=== PATIENT | female | born 1965 | race Two or more races ===

== ENCOUNTER 2025-03-11 16:12 | Inpatient (IN) | payer OTHER, MEDICAID ==
[~2025-03-11] VITALS: Ht 167.6 cm; Wt 65.0 kg
[~2025-03-11 16:12] MED LIST: ALPR0.25 PO; AMBIEN PO; ESTR1TAB6 PO; MET50T PO; NITR400A5 TL
[2025-03-11 16:33] VITALS: PULSE 78; RESP 20; O2SAT 96
--- NOTE | 2025-03-11 17:12 | DVH ---
CHEST RADIOGRAPH Indication: sob Technique: Single frontal view of the chest was obtained COMPARISON: None FINDINGS: Lines and Tubes: None Lungs: Clear Pleura: No effusion. No pneumothorax. Cardiomediastinal contours: Unremarkable Bones: Unremarkable IMPRESSION: 1. No acute disease.
[2025-03-11] MEDS: ONDANSETRON HCL 4 MG/2 ML VIAL IV ONE (17:18)
--- NOTE | 2025-03-11 17:26 | ED.PDOC ---
SOB-HPI HPI Comments 59 y.o female with PMHx of HTN, HLD, GERD, asthma, and hypokalemia, presents to the ED via EMS for a one week history of SOB associated with a productive cough and green phlegm output, associated with nausea. Patient tested positive for COVID-19 on March 07, 2025, and initially experienced intermittent fevers, though she is now afebrile. EMS administered a breathing treatment en route, which provided mild relief, and she presented with an oxygen saturation of 96% on room air post-treatment. Additionally, the patient reported passing a "clump of meat" (possibly cellular matter) while urinating yesterday and today. She denies any dysuria, hematuria, chest pain, chills, or vomiting. Chief Complaint: Cough Time Seen by MD: 16:49 Primary Care Provider: FRANCY Morfin notes: Nurses Notes, Oral Therapist Notes, Medications, Allergies Information Source: Patient Mode of Arrival: EMS Severity: Moderate Timing: Weeks (1) Duration: Since onset Context: At Rest PE Risk Factors: None History of: Recent URI, Other Modifying Factors: Nothing Associated Signs and Symptoms: Cough If cough with SOB: Productive, Green Past Medical History PAST MEDICAL HISTORY: Anxiety, GERD, High Lipids, HTN Surgical History: Cholecystectomy, , Hysterectomy CHILD NUTRITION MANAGER History: No Pertinent CHILD NUTRITION MANAGER History Family History Family History: Reviewed,noncontributory to illness, No family hx of Heart [place] Social History Smoker: Non-Smoker Alcohol: Rarely Drugs: Denies Drug Use Lives In: Home Constitutional: denies: chills, diaphoresis, fatigue, fever, malaise, sweats, weakness, others EENTM: denies: blurred vision, double vision, ear bleeding, ear discharge, ear drainage, ear pain, ear ringing, eye pain, eye redness, hearing loss, mouth pain, mouth swelling, nasal discharge, nose bleeding, nose congestion, nose pain, photophobia, tearing, throat pain, throat swelling, voice changes, others Respiratory: reports: cough, SOB at rest, shortness of breath, SOB with excertion; denies: hemoptysis, orthopnea, stridor, wheezing, others Cardiovascular: denies: chest pain, dizzy spells, diaphoresis, Dyspnea on exertion, edema, irregular heart beat, left arm pain, lightheadedness, palpitations, PND, syncope, others Gastrointestinal: denies: abdomen distended, abdominal pain, blood streaked bowels, constipated, diarrhea, dysphagia, difficulty swallowing, hematemesis, melena, nausea, poor appetite, poor fluid intake, rectal bleeding, rectal pain, vomiting, others Genitourinary: denies: abnormal vagina bleeding, burning, dyspareunia, dysuria, flank pain, frequency, hematuria, incontinence, pain, , vagina discharge, urgency, others Neurological: denies: dizziness, fainting, headache, left sided numbness, left sided weakness, numbness, paresthesia, pre-existing deficit, right sided numbness, right sided weakness, seizure, speech problems, tingling, tremors, weakness, others Musculoskeletal: denies: back pain, gout, joint pain, joint swelling, muscle pain, muscle stiffness, neck pain, others Integumetry: denies: bruises, change in color, change in hair/nails, dryness, laceration, lesions, lumps, rash, wounds, others Allergic/Immunocompromised: denies: Difficulty Healing, Frequent Infections, Hives, Itching, others Hematologic/Lymphatic: denies: anemia, blood clots, easy bleeding, easy bruising, swollen glands, others Endocrine: denies: excessive hunger, excessive sweating, excessive thirst, excessive urination, flushing, intolerance to cold, intolerance to heat, unexplained weight gain, unexplained weight loss, others Psychiatric: denies: anxiety, bipolar disorder, depression, hopeless, panic disorder, schizophrenia, sleepless, suicidal, others All Other Systems: Reviewed and Negative Physical Exam General Appearance: Mild Distress HEENT: Other (Pupils and face symmetric. Moist mucous membranes.) Neck: Full Range of Motion, Normal Inspection Respiratory: Decreased Breath Sounds, No Accessory Muscle Use, Respiratory Distress (Mild respiratory distress) Cardiovascular: No Edema, No JVD, Regular Rate/Rhythm Breast Exam: Deferred Gastrointestinal: Non Tender, Soft Genitalia: Deferred Pelvic: Deferred Rectal: Deferred Extremities: Normal inspection, Normal range of motion, Non-tender, No pedal edema Neurologic: Alert (Oriented x4), Normal Affect, Normal Mood, Other (No gross focal deficit) Cerebellar Function: NOT DONE Reflexes: NOT DONE Skin: Dry, Normal Color, Warm Lymphatic: NOT DONE Was a procedure done? Was a procedure done?: No Differential Dx Differential Diagnosis: Bronchitis, CHF, COPD, Hyperventilation, Pneumonia, Respiratory Distress, URI, Other (UTI, sepsis, among others) X-Ray, Labs, Meds, VS Vital Signs Date Time Temp Pulse Resp B/P (MAP) Pulse Ox O2 Delivery O2 Flow Rate FiO2 03/11/25 20:00 74 16 134/93 (107) 97 03/11/25 19:44 99.0 99.0 03/11/25 18:00 77 18 130/93 (105) 97 03/11/25 16:33 78 20 96 Room Air* 0 21 03/11/25 16:33 98.5 86 14 163/103 (123) 92 98.5 03/11/25 16:16 98.5 78 20 168/97 96 98.5 Lab Test 03/11/25 20:49 03/11/25 19:01 03/11/25 18:32 03/11/25 18:20 Range/Units Troponin I High Sensitivity < 3 L < 3 L </=34 ng/L Lactic Acid Level 2.3 *H 0.4-2.0 mmol/L Urine Color Colorless Yellow Urine Clarity Turbid H Clear Urine pH 7.0 5.0-9.0 Urine Specific [place] 1.013 1.001-1.035 Urine Protein Negative Negative Urine Ketones Negative Negative Urine Blood 1+ H Negative /uL Urine Nitrite Negative Negative Urine Bilirubin Negative Negative Urine Urobilinogen Normal Negative mg/dL Urine Leukocyte Esterase 3+ Negative /uL Urine RBC 14 0 - 4 /hpf Urine WBC Clumps Present None Seen /hpf Urine Microscopic WBC 242 H 0-5 /HPF Urine Squamous Epithelial Cells Few <5 /hpf Urine Bacteria None seen None Seen /hpf Urine Hyaline Casts Few 0 - 2 /lpf Urine Glucose Normal Normal mg/dL Test 03/11/25 18:00 03/11/25 17:11 03/11/25 17:00 Range/Units Influenza Type A Antigen Negative Negative Influenza Type B Antigen Negative Negative SARS-CoV-2 Antigen (Rapid) Positive NEGATIVE White Blood Count 13.0 H 4.4-10.8 10^3/uL Red Blood Count 4.37 4.0-5.20 10^6/uL Hemoglobin 10.7 L 12.2-16.2 g/dL Hematocrit 33.0 L 36.0-46.0 % Mean Corpuscular Volume 75.5 L 80.0-100.0 fL Mean Corpuscular Hemoglobin 24.6 L 28.0-32.0 pg Mean Corpuscular Hemoglobin Concent 32.5 32.0-36.0 g/dL Red Cell Distribution Width 20.9 H 11.8-14.3 % Platelet Count 438 140-450 10^3/uL Mean Platelet Volume 7.7 6.9-10.8 fL Neutrophils (%) (Auto) 84.0 H 37.0-80.0 % Lymphocytes (%) (Auto) 13.3 10.0-50.0 % Monocytes (%) (Auto) 2.6 0.0-12.0 % Eosinophils (%) (Auto) 0.0 0.0-7.0 % Basophils (%) (Auto) 0.1 0.0-2.0 % Neutrophils # (Auto) 10.9 H 1.6-8.6 10 ^3/uL Lymphocytes # (Auto) 1.7 0.4-5.4 10 ^3/uL Monocytes # (Auto) 0.3 0-1.3 10 ^3/uL Eosinophils # (Auto) 0 0-0.8 10 ^3/uL Basophils # (Auto) 0 0-0.2 10 ^3/uL Nucleated Red Blood Cells 0.1 % Sodium Level 144 136-145 mmol/L Potassium Level 3.1 L 3.5-5.1 mmol/L Chloride Level 106 98-107 mmol/L Carbon Dioxide Level 29 20-31 mmol/L Anion Gap 9 5-15 Blood Urea Nitrogen 15 9-23 mg/dL Creatinine 0.75 0.550-1.02 mg/dL Glomerular Filtration Rate Calc 91 >90 mL/min BUN/Creatinine Ratio 20.0 10.0-20.0 Serum Glucose 117 H 74-106 mg/dL Calcium Level 8.9 8.7-10.4 mg/dL Troponin I High Sensitivity < 3 L </=34 ng/L B-Type Natriuretic Peptide 48.14 0-100 pg/mL Lactic Acid Level 2.1 *H 0.4-2.0 mmol/L Current Medications Medications (Trade) Dose Ordered Sig/[place] Route Start Time Stop Time Status Last Admin Ondansetron HCl (Zofran) 4 mg ONCE ONCE IV 03/11/25 17:00 03/11/25 17:03 DC 8/22/25 17:18 Dexamethasone Sodium Phosphate (Decadron Injection) 10 mg ONCE ONCE IV 03/11/25 17:00 03/11/25 17:03 DC 03/11/25 17:18 Cefepime HCl 50 ml @ 12.5 mls/hr ONCE ONCE IV 03/11/25 20:15 03/12/25 00:14 03/11/25 21:14 Sodium Chloride 1,000 ml @ 1,000 mls/hr Q1H ONCE IV 03/11/25 20:15 03/11/25 21:14 DC 03/11/25 21:14 Potassium Bicarbonate (Klor-Con/Ef) 50 meq ONCE ONCE PO 03/11/25 20:15 03/11/25 20:57 DC 03/11/25 21:14 PROCEDURE(s): CXRP - CHEST PORTABLE REASON: sob ORDER NUMBER(s): [id number], ACCESSION NUMBER(s): [id number] CHEST RADIOGRAPH Indication: sob Technique: Single frontal view of the chest was obtained COMPARISON: None FINDINGS: Lines and Tubes: None Lungs: Clear Pleura: No effusion. No pneumothorax. Cardiomediastinal contours: Unremarkable Bones: Unremarkable IMPRESSION: 1. No acute disease. X-Ray, Labs, Meds, VS Comment 59 y.o female with PMHx of HTN, HLD, GERD, asthma, and hypokalemia, presents to the ED via EMS for a one week history of SOB associated with a productive cough and green phlegm output, associated with nausea, with known COVID infection Vitals remarkable for BP 168/97 Exam remarkable for mild respiratory distress and tachypnea Rhythm Strip independently interpreted by me: Sinus rhythm, rate 78, no ectopy. Chest x-ray IMPRESSION: 1. No acute disease. CBC remarkable for WBC 13, metabolic panel remarkable for potassium 3.1, lactate 2.3, BNP and 2 serial troponins negative, COVID positive, influenza negative, UA abnormal consistent with UTI Patient treated with the following in the ED: 1 L 0.9 normal saline IV bolus, cefepime 2 g IV, Zofran 4 mg IV, effervescent potassium 50 mEq p.o. On re-evaluation, vitals are stable and patient is not in respiratory distress. Plan is to admit the patient for respiratory support as needed, pulmonary consultation, IV antibiotics for treatment of UTI Time of 1ST Reevaluation: 18:00 Reevaluation 1ST: Unchanged Patient Education/Counseling: Diagnosis, Treatment, Prognosis Family Education/Counseling: No Family Present SEPSIS Sepsis Screen Date sepsis recognized/suspect: Mar 11, 2025 Time Sepsis recognized/suspect: 1620 Recent Procedure: No On Antibiotic Therapy: No Respiratory Rate >20: No Heart Rate >90: No Temp<36 C (96.8 F) or >38.3 C: No SBP <90 or MAP <65 mmHG: No New Acute Mental Status Change: No Is the patient on CPAP, BIPAP,: No Physician Orders Chest Portable (03/11/25 16:17) Electrocardigram (03/11/25 16:17) Blood Culture (03/11/25 16:17) Cefepime 2gm/50ml Ns (Maxipime 2gm/50ml) (03/11/25 20:15) Urine Bacterial Culture (03/11/25 21:57) Ceftriaxone 1gm/50ml D5w (Rocephin) (03/12/25 09:00) Ceftriaxone 1gm/50ml D5w (Rocephin) (03/11/25 22:00) Isolation Order (03/11/25 21:57) Precautions (Contact,Droplets, (03/11/25 21:57) Lactic Acid W/ Reflex Order (03/11/25 21:57) C-Reactive Protein (03/11/25 21:57) D-Dimer (03/11/25 21:57) Lactate Dehydrogenase (03/11/25 21:57) Chest Two Views Routine (03/11/25 21:57) Vital Signs Date Time Temp Pulse Resp B/P (MAP) Pulse Ox O2 Delivery O2 Flow Rate FiO2 03/11/25 20:00 74 16 134/93 (107) 97 03/11/25 19:44 99.0 99.0 03/11/25 18:00 77 18 130/93 (105) 97 03/11/25 16:33 78 20 96 Room Air* 0 21 03/11/25 16:33 98.5 86 14 163/103 (123) 92 98.5 03/11/25 16:16 98.5 78 20 168/97 96 98.5 Laboratory Tests Test 03/11/25 17:00 03/11/25 17:11 03/11/25 19:01 Lactic Acid Level 2.1 mmol/L (0.4-2.0) *H 2.3 mmol/L (0.4-2.0) *H White Blood Count 13.0 10^3/uL (4.4-10.8) H Medications Medications Dose Ordered Sig/[place] Route Start Time Stop Time Status Last Admin Dose Admin Cefepime HCl 50 ml @ 12.5 mls/hr ONCE ONCE IV 03/11/25 20:15 03/12/25 00:14 03/11/25 21:14 Dexamethasone Sodium Phosphate 10 mg ONCE ONCE IV 03/11/25 17:00 03/11/25 17:03 DC 03/11/25 17:18 Ondansetron HCl 4 mg ONCE ONCE IV 03/11/25 17:00 03/11/25 17:03 DC 03/11/25 17:18 Potassium Bicarbonate 50 meq ONCE ONCE PO 03/11/25 20:15 03/11/25 20:57 DC 03/11/25 21:14 Sodium Chloride 1,000 ml @ 1,000 mls/hr Q1H ONCE IV 03/11/25 20:15 03/11/25 21:14 DC 03/11/25 21:14 Reassessment Post Fluid SEPSIS FOCUS EXAM(REASSESSMENT Sepsis reassessment focused exam completed. Date: 03/11/25 Time 22:13 30 cc/kilogram IV fluid bolus not administered due to patient's COVID positive status. Aggressive fluid hydration could cause harm. Departure 1 Departure Time of Disposition: 20:00 Impression: Primary Impression: COVID Additional Impressions: Shortness of breath UTI (urinary tract infection) Sepsis Disposition: ADMITTED INPATIENT Admit to: Tele Condition: Guarded Critical Care Note Critical Care Time?: Yes (35 min-critical care time only) Critical care comment: Critical care time including multiple bedside re-evaluations, review of lab and imaging studies, and discussion of the case with the admitting provider. Patient is high risk for respiratory, metabolic and/or hemodynamic de compensation. Stability Stability form required: No Heart Score Heart Score: Heart Score Response (Comments) Value History N/A 0 EKG N/A 0 Age N/A 0 Risk Factors N/A 0 Troponin N/A 0 Total 0 I personally scribed for PETER EVANS MD ([email or web address]) on 03/11/25 at 17:26. Electronically submitted by Kristen Eugene ([facility]). PETER EVANS MD Mar 11, 2025 17:26
[2025-03-11 17:31] LABS: Hematocrit 33.0 % (36.0-46.0); Hemoglobin 10.7 g/dL (12.2-16.2); Mean Corpuscular Hemoglobin 24.6 pg (28.0-32.0); Mean Corpuscular Volume 75.5 fL (80.0-100.0); Nucleated Red Blood Cells % 0.1 %
[2025-03-11 17:37] LABS: Calcium 8.9 mg/dL (8.7-10.4); Chloride 106 mmol/L (98-107); Sodium 144 mmol/L (136-145)
[2025-03-11 17:38] LABS: Anion Gap 9 (5-15); Carbon Dioxide 29 mmol/L (20-31)
[2025-03-11 17:43] LABS: BUN/Creatinine Ratio 20.0 (10.0-20.0); Blood Urea Nitrogen 15 mg/dL (9-23)
[2025-03-11 17:50] LABS: Glucose 117 mg/dL (74-106); Potassium 3.1 mmol/L (3.5-5.1)
[2025-03-11 17:58] LABS: Lactic Acid w/Reflex 2.1 mmol/L (0.4-2.0)
[2025-03-11 18:38] LABS: COVID19 ANTIGEN SOFIA FIA POSITIVE (NEGATIVE)
[2025-03-11 18:53] LABS: Urine Protein, UAD Negative (Negative); Urine WBC Clumps PRESENT /hpf (None Seen)
[2025-03-11] MEDS: POTASSIUM EFFERVESENT TAB 25 MEQ PO ONE (21:14)
[2025-03-11] MEDS: CEFEPIME 2GM/50ML NS 50 ML IV ONE (21:14)
[2025-03-11] MEDS: SODIUM CHLORIDE 0.9% 1,000 ML IV ONE (21:14)
[2025-03-11] MEDS ORDERED: ONDANSETRON HCL 4 MG/2 ML VIAL IV PRN (22:15)
--- NOTE | 2025-03-11 22:46 | DVH ---
CHEST RADIOGRAPH Indication: suspected Covid -19 pneumonia Technique: Frontal and lateral view of the chest was obtained Comparison: XY CHEST PORTABLE on DOS: 03/11/25 FINDINGS: Lines and Tubes: External leads. Lungs: No focal consolidation. Pleura: No effusion or pneumothorax. Cardiomediastinal contours: Unremarkable Bones: Unremarkable IMPRESSION: 1. No evidence of acute disease or change from prior exam.
[2025-03-11 22:53] LABS: Lactic Acid w/Reflex 3.1 mmol/L (0.4-2.0)
--- NOTE | 2025-03-11 23:08 | DVHHP2 ---
History of Present Illness Reason for Visit: Acute respiratory distress History of Present Illness The patient is a 59-year-old female with past medical history of asthma, anxiety, GERD, hyperlipidemia, and hypertension who presented to [facility] ED with complaint of shortness of breaths. Patient reports she has been experiencing shortness of breaths associated with cough with greenish phlegm, nausea, tested positive for COVID-19 on March 07, 2025 with intermittent fevers, but now afebrile. Patient was seen and evaluated in the ED, laboratory data shows WBC 13.0, hemoglobin 10.7, hematocrit 33.0, platelets 438, sodium 144, potassium 3.1, BUN 15, creatinine 0.75, GFR 91, glucose 117, calcium 8.9, troponin < 3, lactic acid 2.3, serology reports positive for COVID-19, urinalysis positive for urinary tract infection. Blood pressure 134/93, heart rate 74, temperature 99.0 F, O2 saturation 97% on oxygen. Chest x-ray showed no evidence of acute disease. Please see medication orders section in the computer. On my assessment, patient denied chest pain, no headache, no dizziness, no diaphoresis, currently on oxygen, no nausea, no vomiting, no fever, no chills. Patient was admitted for further evaluation and medical management. Past Medical History Asthma, Anxiety, GERD, High Lipids, HTN Past Surgical History Cholecystectomy, , Hysterectomy Family History Reviewed, noncontributory to the management of this case. Past Social History The patient lives at home, denies smoking, alcohol or illicit drugs abuse. Review of Systems Constitutional: No: Fever, Chills, Sweats, Weakness, Malaise, Other Eyes: No: Pain, Vision change, Conjunctivae inflammation, Eyelid inflammation, Other, Redness ENT: No: Ear pain, Ear discharge, Nose pain, Nose discharge, Nose congestion, Mouth pain, Mouth swelling, Throat pain, Throat swelling, Other Respiratory: Cough, Shortness of breath, SOB with excertion, Other (SOB at rest); No: Dry, Wheezing, Hemoptysis, Pleuritic Pain, Sputum, Wheezing Cardiovascular: No: Chest Pain, Palpitations, Orthopnea, Paroxysmal Noc. Dyspnea, Edema, Lt Headedness, Other Gastrointestinal: No: Nausea, Vomiting, Abdominal Pain, Diarrhea, Constipation, Melena, Hematochezia, Other Genitourinary: No Dysuria, No Frequency, No Incontinence, No Hematuria, No Retention, No Other Musculoskeletal: No: other, neck pain, shoulder pain, arm pain, back pain, hand pain, leg pain, foot pain Skin: No: Rash, Lesions, Jaundice, Bruising, Other Neurological: No: Weakness, Numbness, Incoordination, Change in speech, Confusion, Seizures, Other Allergies: Coded Allergies: Morphine (Verified Adverse Reaction, Unknown, HEADACHE, 01/09/16) Medications Current Medications Medications Dose Ordered Sig/[place] Route Start Time Stop Time Status Last Admin Dose Admin Ceftriaxone Sodium 50 ml @ 100 mls/hr DAILY@09 IV 03/12/25 09:00 UNV Zinc Sulfate 220 mg DAILY PO 03/12/25 10:00 Albuterol 90 mcg TIDPRN PRN IN 03/11/25 22:15 Budesonide 360 mcg BID IN 03/12/25 10:00 Dexamethasone Sodium Phosphate 6 mg DAILY IV 03/12/25 10:00 03/22/25 09:59 Enoxaparin Sodium 40 mg DAILY SC 03/12/25 10:00 Sodium Chloride 10 ml Q8HR IV 03/12/25 06:00 Ondansetron HCl 4 mg Q4HP PRN IV 03/11/25 22:15 Docusate Sodium 100 mg BIDPRN PRN PO 03/11/25 22:15 Ascorbic Acid 500 mg BID PO 03/12/25 10:00 Acetaminophen 650 mg Q6HP PRN PO 03/11/25 22:15 Exam Vital Signs Vital Signs Date Time Temp Pulse Resp B/P (MAP) Pulse Ox O2 Delivery O2 Flow Rate FiO2 03/11/25 20:00 74 16 134/93 (107) 97 03/11/25 19:44 99.0 99.0 03/11/25 16:33 Room Air* 0 21 General Appearance: Alert, Oriented X3, Cooperative, No acute distress HEENT: Atraumatic, PERRLA, EOMI, Mucous membr. moist/pink Respiratory: Normal air movement Cardiovascular: Regular rate, Normal S1, Normal S2, No murmurs Abdominal: Normal bowel sounds, Soft, No tenderness, No hepatospenomegaly, No masses Extremities: No clubbing, No cyanosis, No edema, Normal pulses, No tenderness/swelling Skin: No rashes, No breakdown, No significant lesion Neuro: Normal gait, Normal speech, Strength at 5/5 X4 ext, Normal tone, Sensation intact, Cranial nerves 3-12 NL, Reflexes 2+ Psych/Mental Status: Mental status NL, Mood NL Labs/Xrays Labs Test 03/11/25 22:20 03/11/25 20:49 03/11/25 18:20 03/11/25 18:00 Range/Units Lactic Acid Level 3.1 *H 0.4-2.0 mmol/L Lactate Dehydrogenase 157 120-246 U/L Troponin I High Sensitivity < 3 L </=34 ng/L Urine Color Colorless Yellow Urine Clarity Turbid H Clear Urine pH 7.0 5.0-9.0 Urine Specific [place] 1.013 1.001-1.035 Urine Protein Negative Negative Urine Ketones Negative Negative Urine Blood 1+ H Negative /uL Urine Nitrite Negative Negative Urine Bilirubin Negative Negative Urine Urobilinogen Normal Negative mg/dL Urine Leukocyte Esterase 3+ Negative /uL Urine RBC 14 0 - 4 /hpf Urine WBC Clumps Present None Seen /hpf Urine Microscopic WBC 242 H 0-5 /HPF Urine Squamous Epithelial Cells Few <5 /hpf Urine Bacteria None seen None Seen /hpf Urine Hyaline Casts Few 0 - 2 /lpf Urine Glucose Normal Normal mg/dL Influenza Type A Antigen Negative Negative Influenza Type B Antigen Negative Negative SARS-CoV-2 Antigen (Rapid) Positive NEGATIVE Test 03/11/25 17:11 Range/Units White Blood Count 13.0 H 4.4-10.8 10^3/uL Red Blood Count 4.37 4.0-5.20 10^6/uL Hemoglobin 10.7 L 12.2-16.2 g/dL Hematocrit 33.0 L 36.0-46.0 % Mean Corpuscular Volume 75.5 L 80.0-100.0 fL Mean Corpuscular Hemoglobin 24.6 L 28.0-32.0 pg Mean Corpuscular Hemoglobin Concent 32.5 32.0-36.0 g/dL Red Cell Distribution Width 20.9 H 11.8-14.3 % Platelet Count 438 140-450 10^3/uL Mean Platelet Volume 7.7 6.9-10.8 fL Neutrophils (%) (Auto) 84.0 H 37.0-80.0 % Lymphocytes (%) (Auto) 13.3 10.0-50.0 % Monocytes (%) (Auto) 2.6 0.0-12.0 % Eosinophils (%) (Auto) 0.0 0.0-7.0 % Basophils (%) (Auto) 0.1 0.0-2.0 % Neutrophils # (Auto) 10.9 H 1.6-8.6 10 ^3/uL Lymphocytes # (Auto) 1.7 0.4-5.4 10 ^3/uL Monocytes # (Auto) 0.3 0-1.3 10 ^3/uL Eosinophils # (Auto) 0 0-0.8 10 ^3/uL Basophils # (Auto) 0 0-0.2 10 ^3/uL Nucleated Red Blood Cells 0.1 % Sodium Level 144 136-145 mmol/L Potassium Level 3.1 L 3.5-5.1 mmol/L Chloride Level 106 98-107 mmol/L Carbon Dioxide Level 29 20-31 mmol/L Anion Gap 9 5-15 Blood Urea Nitrogen 15 9-23 mg/dL Creatinine 0.75 0.550-1.02 mg/dL Glomerular Filtration Rate Calc 91 >90 mL/min BUN/Creatinine Ratio 20.0 10.0-20.0 Serum Glucose 117 H 74-106 mg/dL Calcium Level 8.9 8.7-10.4 mg/dL B-Type Natriuretic Peptide 48.14 0-100 pg/mL PATIENT: ADRIANNE MCFADDEN ACCT: [id number] UNIT: [id number] : 1965 LOC: ER ROOM / BED: / AGE / SEX: 59 / F ADM STATUS: REG ER SERVICE 1617 ORDERING PHYSICIAN: PETER EVANS MD PROCEDURE(s): CXRP - CHEST PORTABLE REASON: sob ORDER NUMBER(s): [id number], ACCESSION NUMBER(s): [id number] CHEST RADIOGRAPH Indication: sob Technique: Single frontal view of the chest was obtained COMPARISON: None FINDINGS: Lines and Tubes: None Lungs: Clear Pleura: No effusion. No pneumothorax. Cardiomediastinal contours: Unremarkable Bones: Unremarkable IMPRESSION: 1. No acute disease. ORDERING PHYSICIAN: KEAGAN FERNANDEZ DNP PROCEDURE(s): CXR2 - CHEST TWO VIEWS ROUTINE REASON: suspected Covid -19 pneumonia ORDER NUMBER(s): [id number], ACCESSION NUMBER(s): [id number] CHEST RADIOGRAPH Indication: suspected Covid -19 pneumonia Technique: Frontal and lateral view of the chest was obtained Comparison: XY CHEST PORTABLE on DOS: 03/11/25 FINDINGS: Lines and Tubes: External leads. Lungs: No focal consolidation. Pleura: No effusion or pneumothorax. Cardiomediastinal contours: Unremarkable Bones: Unremarkable IMPRESSION: 1. No evidence of acute disease or change from prior exam. SEPSIS Sepsis Screen Date sepsis recognized/suspect: Mar 11, 2025 Time Sepsis recognized/suspect: 1632 Recent Procedure: No On Antibiotic Therapy: No Respiratory Rate >20: No Heart Rate >90: No Temp<36 C (96.8 F) or >38.3 C: No SBP <90 or MAP <65 mmHG: No New Acute Mental Status Change: No Is the patient on CPAP, BIPAP,: No Physician Orders Chest Portable (03/11/25 16:17) Electrocardigram (03/11/25 16:17) Blood Culture (03/11/25 16:17) Cefepime 2gm/50ml Ns (Maxipime 2gm/50ml) (03/11/25 20:15) Urine Bacterial Culture (03/11/25 21:57) Ceftriaxone 1gm/50ml D5w (Rocephin) (03/12/25 09:00) Isolation Order (03/11/25 21:57) Precautions (Contact,Droplets, (03/11/25 21:57) C-Reactive Protein (03/11/25 21:57) D-Dimer (03/11/25 21:57) Chest Two Views Routine (03/11/25 21:57) Zinc Sulfate (03/12/25 10:00) Albuterol Inhaler (Ventolin Hfa) (03/11/25 22:15) Urinalysis (03/11/25 22:04) C-Reactive Protein (03/15/25 22:04) Budesonide (Inhalation) (Pulmicort Flexh (03/12/25 10:00) Dexamethasone Injection (Decadron Inject (03/12/25 10:00) Enoxaparin Sodium (Lovenox) (03/12/25 10:00) Allergies (03/11/25 22:04) Code Status (03/11/25 22:04) Sodium Chloride Lock (Saline Lock Ns) (03/12/25 06:00) Docusate Sodium Capsule (Colace Capsule) (03/11/25 22:15) Ascorbic Acid Tablet (Vitamin C Tablet) (03/12/25 10:00) Complete Blood Count (03/12/25 04:00) Comprehensive Metabolic Panel (03/12/25 04:00) Cardiac Diet-2gna,Lofat,Lochol (03/12/25 Breakfast) Condition: Serious (03/11/25 22:04) Acetaminophen Tablet (Tylenol Tablet) (03/11/25 22:15) Bedrest With Bathroom Privileg (03/11/25 22:04) Sequential Compression Device (03/11/25 ) Oxygen Per Hour (03/11/25 22:04) Ondansetron Hcl (Zofran) (03/11/25 22:15) Admit (03/11/25 23:06) Nitroglycerin Sublingual (Ntrostat Subli (03/11/25 23:15) Stat Ekg For Chest Pain (03/11/25 23:06) Notify Md Of Changes From Base (03/11/25 23:06) Floor Care Technician For 24 Hours (03/11/25 23:06) Emergency Dysrhythmia Protocol (03/11/25 23:06) Rhythm Strips Once Every Shift (03/11/25 23:06) Oxygen By Nasal Cannula (03/11/25 23:06) Vital Signs Date Time Temp Pulse Resp B/P (MAP) Pulse Ox O2 Delivery O2 Flow Rate FiO2 03/11/25 20:00 74 16 134/93 (107) 97 03/11/25 19:44 99.0 99.0 03/11/25 18:00 77 18 130/93 (105) 97 03/11/25 16:33 78 20 96 Room Air* 0 21 03/11/25 16:33 98.5 86 14 163/103 (123) 92 98.5 03/11/25 16:16 98.5 78 20 168/97 96 98.5 Laboratory Tests Test 03/11/25 17:00 03/11/25 17:11 03/11/25 19:01 03/11/25 22:20 Lactic Acid Level 2.1 mmol/L (0.4-2.0) *H 2.3 mmol/L (0.4-2.0) *H 3.1 mmol/L (0.4-2.0) *H White Blood Count 13.0 10^3/uL (4.4-10.8) H Medications Medications Dose Ordered Sig/[place] Route Start Time Stop Time Status Last Admin Dose Admin Cefepime HCl 50 ml @ 12.5 mls/hr ONCE ONCE IV 03/11/25 20:15 03/12/25 00:14 03/11/25 21:14 12.5 MLS/HR Dexamethasone Sodium Phosphate 10 mg ONCE ONCE IV 03/11/25 17:00 03/11/25 17:03 DC 03/11/25 17:18 10 MG Ondansetron HCl 4 mg ONCE ONCE IV 03/11/25 17:00 03/11/25 17:03 DC 03/11/25 17:18 4 MG Potassium Bicarbonate 50 meq ONCE ONCE PO 03/11/25 20:15 03/11/25 20:57 DC 03/11/25 21:14 50 MEQ Sodium Chloride 1,000 ml @ 1,000 mls/hr Q1H ONCE IV 03/11/25 20:15 03/11/25 21:14 DC 03/11/25 21:14 1,000 MLS/HR Assessment/Plan Assessment/Plan COVID viral pneumonia Hypokalemia Leukocytosis, unspecified Acute respiratory distress UTI (urinary tract infection) Plan 1. Admit to telemetry unit 2. Breathing treatment 3. Pain control management 4. IV antibiotic management 5. Management of fluids and electrolytes 6. Consultation for hospitalist 7. Diagnostic test chest x-ray 8. DVT prophylaxis-on Lovenox 9. Repeat labs CBC, CMP in a.m. 10. Home medication reviewed and reconciled 11. Continue with current medical management 12. Treatment plan discussed with patient and RN. Patient verbalized understanding. Plan discussed with: Patient, Other (RN) My Orders Orders - KEAGAN FERNANDEZ DNP Procedure Category Date Status Time Urine Bacterial CLINT 03/11/25 In Process Culture 21:57 Ceftriaxone 1gm/50ml PHA 03/12/25 Pending D5w (Rocephin) 09:00 Isolation Order ORDERS 03/11/25 Transmitted 21:57 Precautions MARIA 03/11/25 In Process (Contact,Droplets, 21:57 C-Reactive Protein LAB 03/11/25 In Process 21:57 D-Dimer LAB 03/11/25 In Process 21:57 Chest Two Views XY 03/11/25 Resulted Routine 21:57 Zinc Sulfate PHA 03/12/25 In Process 10:00 Albuterol Inhaler PHA 03/11/25 In Process (Ventolin Hfa) 22:15 Urinalysis LAB 03/11/25 Logged 22:04 C-Reactive Protein LAB 03/15/25 Verified 22:04 Budesonide PHA 03/12/25 In Process (Inhalation) 10:00 Dexamethasone PHA 03/12/25 In Process Injection (Decadron 10:00 Enoxaparin Sodium PHA 03/12/25 In Process (Lovenox) 10:00 Allergies MARIA 03/11/25 In Process 22:04 Code Status CODE 03/11/25 Transmitted 22:04 Sodium Chloride Lock PHA 03/12/25 In Process (Saline Lock Ns) 06:00 Docusate Sodium PHA 03/11/25 In Process Capsule (Colace 22:15 Ascorbic Acid Tablet PHA 03/12/25 In Process (Vitamin C Tablet) 10:00 Complete Blood Count LAB 03/12/25 Verified 04:00 Comprehensive LAB 03/12/25 Verified Metabolic Panel 04:00 Cardiac DIET 03/12/25 Transmitted Diet-2gna,Lofat,Lochol Breakfast Condition: Serious MARIA 03/11/25 In Process 22:04 Acetaminophen Tablet PHA 03/11/25 In Process (Tylenol Tablet) 22:15 Bedrest With Bathroom MARIA 03/11/25 In Process Privileg 22:04 Sequential MARIA 03/11/25 In Process Compression Device Oxygen Per Hour RT 03/11/25 Verified 22:04 Ondansetron Hcl PHA 03/11/25 In Process (Zofran) 22:15 Admit ADMIT 03/11/25 Verified 23:06 Nitroglycerin PHA 03/11/25 Verified Sublingual (Ntrostat 23:15 Stat Ekg For Chest [facility] 03/11/25 Verified Pain 23:06 Notify Of Changes [facility] 03/11/25 Verified From Base 23:06 Floor Care Technician For [facility] 03/11/25 Verified 24 Hours 23:06 Emergency Dysrhythmia MARIA 03/11/25 Verified Protocol 23:06 Rhythm Strips Once [facility] 03/11/25 Verified Every Shift 23:06 Oxygen By Nasal RT 03/11/25 Verified Cannula 23:06 Problem List: (1) Pneumonia due to COVID-19 virus (2) Hypokalemia (3) Leukocytosis, unspecified (4) Acute respiratory distress (5) UTI (urinary tract infection) Date of Service: Mar 11, 2025 Billing Provider: KEAGAN FERNANDEZ DNP Common Visit Codes: [id number] INP/OBS CARE (HIGH) KEAGAN FERNANDEZ DNP Mar 11, 2025 23:08
[2025-03-11] MEDS ORDERED: NITROGLYCERIN 0.4 MG SL TAB SL PRN (23:15)
[2025-03-11 23:27] VITALS: O2SAT 97
[2025-03-11 23:28] VITALS: BP 134/93; PULSE 74; RESP 18; TEMP 99; O2SAT 97
[2025-03-11] MEDS: LACTATED RINGER'S 500 ML IV ONE (23:57)
[2025-03-12] MEDS: LACTATED RINGER'S 1,000 ML IV SCH (00:56)
[2025-03-12] MEDS: SODIUM CHLOR 0.9% PF (SALINE LOCK) 10ML VIAL/SYR IV SCH (06:04)
[2025-03-12 08:04] VITALS: PULSE 71; RESP 17; O2SAT 94
[2025-03-12 09:08] LABS: Hemoglobin 10.2 g/dL (12.2-16.2); Mean Corpuscular Volume 75.8 fL (80.0-100.0)
[2025-03-12 09:15] LABS: Hematocrit 31.5 % (36.0-46.0); Mean Corpuscular Hemoglobin 24.7 pg (28.0-32.0); Nucleated Red Blood Cells % 0.1 %
[2025-03-12] MEDS: ACETAMINOPHEN 325 MG TAB PO PRN (09:30)
[2025-03-12 09:34] LABS: Alanine Aminotransferase 13 U/L (7-40); Albumin 4.2 g/dL (3.2-4.8); Alkaline Phosphatase 65 U/L (46-116); Anion Gap 7 (5-15); BUN/Creatinine Ratio 23.6 (10.0-20.0); Bilirubin, Total 0.3 mg/dL (0.2-1.0); Blood Urea Nitrogen 17 mg/dL (9-23); Calcium 9.0 mg/dL (8.7-10.4); Carbon Dioxide 29 mmol/L (20-31); Chloride 106 mmol/L (98-107); Potassium 4.2 mmol/L (3.5-5.1); Sodium 142 mmol/L (136-145); Total Protein 6.7 g/dL (5.7-8.2)
[2025-03-12 09:54] LABS: Glucose 127 mg/dL (74-106)
[2025-03-12 10:07] LABS: Anisocytosis Slight; Ovalocytes FEW
[2025-03-12 10:30] VITALS: PULSE 83; RESP 16; O2SAT 94
[2025-03-12] MEDS: ALBUTEROL SULF HFA 90MCG INH 200DOSE IN PRN (10:31)
[2025-03-12] MEDS: BUDESONIDE (INHALATION) 180 MCG IH IN SCH (10:31)
[2025-03-12] MEDS: ZINC SULFATE 220mg CAP or TAB PO SCH (11:17)
[2025-03-12] MEDS: ASCORBIC ACID 500 MG TAB PO SCH (11:17)
[2025-03-12] MEDS: ENOXAPARIN SOD 40 MG/0.4 ML SYRINGE SC SCH (11:18)
[2025-03-12 16:04] LABS: Urine Protein, UAD Negative (Negative)
--- NOTE | 2025-03-12 18:29 | DVHPN2 ---
Subjective Admitted overnight for COVID-19 and shortness for breath. Patient has a history of asthma. Today she feels better. Changes from previous H/P or p: No Changes Objective Vitals Vital Signs Date Time Temp Pulse Resp B/P (MAP) Pulse Ox O2 Delivery O2 Flow Rate FiO2 03/12/25 18:04 98.6 82 20 145/74 (97) 95 98.6 03/12/25 10:30 Room Air* 0 21 Intake/Output Intake and Output 03/12/25 07:00 Intake Total 1537.5 ml Balance 1537.5 ml Intake IV Total 1537.5 ml Exam Alert awake oriented x3. No acute cardiopulmonary distress. HEENT neck supple no JVD. Heart regular rate and rhythm S1-S2. Lungs fair air movement without any audible wheezing. Abdomen soft positive bowel sounds. Extremities no edema positive pulses. Medications Current Medications Medications Dose Ordered Sig/[place] Route Start Time Stop Time Status Last Admin Dose Admin Ceftriaxone Sodium 50 ml @ 100 mls/hr DAILY@09 IV 03/12/25 09:00 03/12/25 09:29 100 MLS/HR Zinc Sulfate 220 mg DAILY PO 03/12/25 10:00 03/12/25 11:17 220 MG Albuterol 90 mcg TIDPRN PRN IN 03/11/25 22:15 03/12/25 10:31 90 MCG Budesonide 360 mcg BID IN 03/12/25 10:00 03/12/25 10:31 360 MCG Dexamethasone Sodium Phosphate 6 mg DAILY IV 03/12/25 10:00 03/22/25 09:59 03/12/25 11:18 6 MG Enoxaparin Sodium 40 mg DAILY SC 03/12/25 10:00 03/12/25 11:18 40 MG Sodium Chloride 10 ml Q8HR IV 03/12/25 06:00 03/12/25 14:01 10 ML Ondansetron HCl 4 mg Q4HP PRN IV 03/11/25 22:15 Docusate Sodium 100 mg BIDPRN PRN PO 03/11/25 22:15 Ascorbic Acid 500 mg BID PO 03/12/25 10:00 03/12/25 11:17 500 MG Acetaminophen 650 mg Q6HP PRN PO 03/11/25 22:15 03/12/25 09:30 650 MG Nitroglycerin 0.4 mg Q5MINP PRN SL 03/11/25 23:15 Lactated Ringer's 1,000 ml @ 100 mls/hr Q10H IV 03/12/25 00:00 03/12/25 11:03 100 MLS/HR Laboratory Results Laboratory Tests 03/12/25 08:59 Chemistry Test 03/12/25 08:59 Albumin 4.2 g/dL (3.2-4.8) Calcium Level 9.0 mg/dL (8.7-10.4) Total Protein 6.7 g/dL (5.7-8.2) Coagulation Test 03/11/25 22:20 D-Dimer, Quantitative 0.26 mg/L FEU (0.0-0.49) LFT Test 03/12/25 08:59 Alanine Aminotransferase (ALT) 13 U/L (7-40) Alkaline Phosphatase 65 U/L (46-116) Aspartate Amino Transferase (AST) 11 U/L (13-40) L Total Bilirubin 0.3 mg/dL (0.2-1.0) Urinalysis Test 03/11/25 18:20 03/12/25 13:10 Urine WBC Clumps Present /hpf (None Seen) Urine Hyaline Casts Few /lpf (0 - 2) Urine Color Colorless (Yellow) Urine Clarity Clear (Clear) Urine pH 7.0 (5.0-9.0) Urine Specific [place] 1.004 (1.001-1.035) Urine Protein Negative (Negative) Urine Ketones Negative (Negative) Urine Blood Negative /uL (Negative) Urine Nitrite Negative (Negative) Urine Bilirubin Negative (Negative) Urine Urobilinogen Normal mg/dL (Negative) Urine Leukocyte Esterase 3+ /uL (Negative) Urine RBC 4 /hpf (0 - 4) Urine Microscopic WBC 76 /HPF (0-5) H Urine Squamous Epithelial Cells Few /hpf (<5) Urine Bacteria Few /hpf (None Seen) H Urine Glucose Normal mg/dL (Normal) Microbiology Microbiology Date/Time Source Procedure Growth Status 03/11/25 17:11 Blood Blood Culture - Preliminary NO GROWTH AFTER 24 HOURS OF INCUBATION. Resulted Assessment/Plan Assessment/Plan COVID-19 Asthma Acute on chronic respiratory failure She is oxygenating normally on room air. Continue current steroids breathing treatments. We will have social Service to arrange for home med nebulizer. Patient says inhalers at home for asthma are not keeping it under control. Pulmonary consultation. Otherwise further clinical management per clinical course. Discussed with the nurse and patient. Plan discussed with: Patient, Other Date of Service: Mar 12, 2025 Billing Provider: JETHRO MILLS MD Common Visit Codes: [id number] INP/OBS CARE(MOD) JETHRO MILLS MD Mar 12, 2025 18:29
[2025-03-12 19:30] VITALS: PULSE 71; RESP 17; O2SAT 94
[2025-03-12 22:27] VITALS: PULSE 74; RESP 20; O2SAT 96
[2025-03-12] MEDS: MONTELUKAST SODIUM 10 MG TAB PO SCH (22:38)
[2025-03-13 06:38] VITALS: PULSE 74; RESP 18; O2SAT 96
--- NOTE | 2025-03-13 17:41 | DVHPN2 ---
Subjective Admitted overnight for COVID-19 and shortness for breath. Patient has a history of asthma. Room air oxygenation is around 89-91%. Therefore she is on couple of L of oxygen via nasal cannula Changes from previous H/P or p: No Changes Eyes: No Pain, No Vision change, No Conjunctivae inflammation, No Eyelid inflammation, No Other, No Redness ENT: No Ear pain, No Ear discharge, No Nose pain, No Nose discharge, No Nose congestion, No Mouth pain, No Mouth swelling, No Throat pain, No Throat swelling, No Other Cardiovascular: No Chest Pain, No Palpitations, No Orthopnea, No Paroxysmal Noc. Dyspnea, No Edema, No Lt Headedness, No Other Respiratory: Cough; No Dry; Shortness of breath, SOB with excertion; No Wheezing, No Hemoptysis, No Pleuritic Pain, No Sputum; Other (SOB at rest) Gastrointestinal: No Nausea, No Vomiting, No Abdominal Pain, No Diarrhea, No Constipation, No Melena, No Hematochezia, No Other Genitourinary: No Dysuria, No Frequency, No Incontinence, No Hematuria, No Retention, No Other Musculoskeletal: No other, No neck pain, No shoulder pain, No arm pain, No back pain, No hand pain, No leg pain, No foot pain Skin: No Rash, No Lesions, No Jaundice, No Bruising, No Other Objective Vitals Vital Signs Date Time Temp Pulse Resp B/P (MAP) Pulse Ox O2 Delivery O2 Flow Rate FiO2 03/13/25 16:29 98 17 157/98 (117) 97 03/13/25 12:00 98.3 98.3 03/13/25 07:38 Room Air* 0 21 Intake/Output Intake and Output 03/13/25 07:00 Intake Total 1050 ml Balance 1050 ml Intake IV Total 1050 ml Exam Alert awake oriented x3. No acute cardiopulmonary distress. HEENT neck supple no JVD. Heart regular rate and rhythm S1-S2. Lungs fair air movement without any audible wheezing. Abdomen soft positive bowel sounds. Extremities no edema positive pulses. Medications Current Medications Medications Dose Ordered Sig/[place] Route Start Time Stop Time Status Last Admin Dose Admin Ceftriaxone Sodium 50 ml @ 100 mls/hr DAILY@09 IV 03/12/25 09:00 03/13/25 08:48 100 MLS/HR Zinc Sulfate 220 mg DAILY PO 03/12/25 10:00 03/13/25 08:48 220 MG Albuterol 90 mcg TIDPRN PRN IN 03/11/25 22:15 03/13/25 06:38 90 MCG Budesonide 360 mcg BID IN 03/12/25 10:00 03/13/25 06:38 360 MCG Dexamethasone Sodium Phosphate 6 mg DAILY IV 03/12/25 10:00 03/22/25 09:59 03/13/25 08:49 6 MG Enoxaparin Sodium 40 mg DAILY SC 03/12/25 10:00 03/13/25 08:49 40 MG Sodium Chloride 10 ml Q8HR IV 03/12/25 06:00 03/13/25 14:24 10 ML Ondansetron HCl 4 mg Q4HP PRN IV 03/11/25 22:15 Docusate Sodium 100 mg BIDPRN PRN PO 03/11/25 22:15 Ascorbic Acid 500 mg BID PO 03/12/25 10:00 03/13/25 08:48 500 MG Acetaminophen 650 mg Q6HP PRN PO 03/11/25 22:15 03/12/25 09:30 650 MG Nitroglycerin 0.4 mg Q5MINP PRN SL 03/11/25 23:15 Montelukast Sodium 10 mg HS PO 03/12/25 22:00 03/12/25 22:38 10 MG Laboratory Results Laboratory Tests 03/12/25 08:59 Urinalysis Test 03/11/25 18:20 03/12/25 13:10 Urine WBC Clumps Present /hpf (None Seen) Urine Hyaline Casts Few /lpf (0 - 2) Urine Color Colorless (Yellow) Urine Clarity Clear (Clear) Urine pH 7.0 (5.0-9.0) Urine Specific [place] 1.004 (1.001-1.035) Urine Protein Negative (Negative) Urine Ketones Negative (Negative) Urine Blood Negative /uL (Negative) Urine Nitrite Negative (Negative) Urine Bilirubin Negative (Negative) Urine Urobilinogen Normal mg/dL (Negative) Urine Leukocyte Esterase 3+ /uL (Negative) Urine RBC 4 /hpf (0 - 4) Urine Microscopic WBC 76 /HPF (0-5) H Urine Squamous Epithelial Cells Few /hpf (<5) Urine Bacteria Few /hpf (None Seen) H Urine Glucose Normal mg/dL (Normal) Microbiology Microbiology Date/Time Source Procedure Growth Status 03/11/25 18:20 Voided Urine Urine Culture - Preliminary Resulted 03/11/25 17:11 Blood Blood Culture - Preliminary NO GROWTH AFTER 48 HOURS OF INCUBATION. Resulted Assessment/Plan Assessment/Plan COVID-19 Asthma Acute on chronic respiratory failure Given hypoxemia today I will start her on IV remdesivir treatment for three days. Continue current steroids breathing treatments. We will have social Service to arrange for home med nebulizer. Otherwise further clinical management per clinical course. Discussed with the nurse and patient. Plan discussed with: Patient, Other My Orders Orders - JETHRO MILLS MD Procedure Category Date Status Time * Bit [place]aver CONS 03/12/25 Transmitted Consult Montelukast Tablet PHA 03/12/25 In Process (Singulair Tablet) 22:00 Comprehensive LAB 03/14/25 Verified Metabolic Panel 04:00 Complete Blood Count LAB 03/14/25 Verified 04:00 Pt Request For Service PT 03/13/25 Logged 12:41 Date of Service: Mar 13, 2025 Billing Provider: JETHRO MILLS MD Common Visit Codes: [id number] INP/OBS CARE(MOD) JETHRO MILLS MD Mar 13, 2025 17:41
[2025-03-13] MEDS ORDERED: REMDESIVIR PER PHARMACY 0 ML IV SCH (17:45)
[2025-03-13] MEDS: REMDESIVIR 200mg in NS 210mL LOADING DOSE ADULT IV ONE (19:00)
[2025-03-13 19:07] VITALS: PULSE 53; RESP 20; O2SAT 100
[2025-03-13 19:40] VITALS: PULSE 99; RESP 14; O2SAT 96
[2025-03-14] VITALS (9 sets, daily range): BP systolic 124–159; BP diastolic 88–94; PULSE 65–90; RESP 16–20; TEMP 96.3–98.5; O2SAT 94–97
[2025-03-14 07:03] LABS: Hemoglobin 10.2 g/dL (12.2-16.2); Mean Corpuscular Hemoglobin 24.5 pg (28.0-32.0)
[2025-03-14 07:04] LABS: Hematocrit 31.3 % (36.0-46.0); Mean Corpuscular Volume 75.0 fL (80.0-100.0)
[2025-03-14 07:10] LABS: Alanine Aminotransferase 12 U/L (7-40); Alkaline Phosphatase 54 U/L (46-116); Anion Gap 8 (5-15); BUN/Creatinine Ratio 30.0 (10.0-20.0); Blood Urea Nitrogen 18 mg/dL (9-23); Calcium 9.1 mg/dL (8.7-10.4); Carbon Dioxide 29 mmol/L (20-31); Chloride 105 mmol/L (98-107); Glucose 90 mg/dL (74-106); Potassium 3.7 mmol/L (3.5-5.1); Sodium 142 mmol/L (136-145); Total Protein 6.4 g/dL (5.7-8.2)
[2025-03-14 07:11] LABS: Albumin 4.2 g/dL (3.2-4.8)
[2025-03-14 07:13] LABS: Bilirubin, Total 0.3 mg/dL (0.2-1.0)
[2025-03-14 07:42] LABS: Anisocytosis Slight; Total Cells Counted 100.0 (100)
--- NOTE | 2025-03-14 12:13 | DVHPN2 ---
Subjective Patient is seen today, doing well . continues to cough Reviewed: Care Plan Changes from previous H/P or p: No Changes General: Per HPI Eyes: No Pain, No Vision change, No Conjunctivae inflammation, No Eyelid inflammation, No Other, No Redness ENT: No Ear pain, No Ear discharge, No Nose pain, No Nose discharge, No Nose congestion, No Mouth pain, No Mouth swelling, No Throat pain, No Throat swelling, No Other Cardiovascular: No Chest Pain, No Palpitations, No Orthopnea, No Paroxysmal Noc. Dyspnea, No Edema, No Lt Headedness, No Other Respiratory: Cough; No Dry; Shortness of breath, SOB with excertion; No Wheezing, No Hemoptysis, No Pleuritic Pain, No Sputum; Other (SOB at rest) Gastrointestinal: No Nausea, No Vomiting, No Abdominal Pain, No Diarrhea, No Constipation, No Melena, No Hematochezia, No Other Genitourinary: No Dysuria, No Frequency, No Incontinence, No Hematuria, No Retention, No Other Musculoskeletal: No other, No neck pain, No shoulder pain, No arm pain, No back pain, No hand pain, No leg pain, No foot pain Skin: No Rash, No Lesions, No Jaundice, No Bruising, No Other Objective Vitals Vital Signs Date Time Temp Pulse Resp B/P (MAP) Pulse Ox O2 Delivery O2 Flow Rate FiO2 03/14/25 09:30 98.3 80 20 166/103 (124) 95 98.3 03/14/25 09:30 Room Air* 0 21 Exam GEN: Healthy appearing, well-developed, NAD. HEENT: NC/AT; MMM. CV: RRR, no m/r/g. LUNGS: CTAB, no w/r/c. ABD: Soft, NT/ND, NBS, no masses or organomegaly. EXT: skin Warm, well perfused. no rashes. No clubbing, cyanosis, or edema. NEURO: Ambulating with no limitations. No focal deficits. Medications Current Medications Medications Dose Ordered Sig/[place] Route Start Time Stop Time Status Last Admin Dose Admin Ceftriaxone Sodium 50 ml @ 100 mls/hr DAILY@09 IV 03/12/25 09:00 03/14/25 08:56 100 MLS/HR Zinc Sulfate 220 mg DAILY PO 03/12/25 10:00 03/13/25 08:48 220 MG Albuterol 90 mcg TIDPRN PRN IN 03/11/25 22:15 03/13/25 19:07 90 MCG Budesonide 360 mcg BID IN 03/12/25 10:00 03/14/25 06:21 360 MCG Dexamethasone Sodium Phosphate 6 mg DAILY IV 03/12/25 10:00 03/22/25 09:59 03/13/25 08:49 6 MG Enoxaparin Sodium 40 mg DAILY SC 03/12/25 10:00 03/13/25 08:49 40 MG Sodium Chloride 10 ml Q8HR IV 03/12/25 06:00 03/14/25 06:11 10 ML Ondansetron HCl 4 mg Q4HP PRN IV 03/11/25 22:15 Docusate Sodium 100 mg BIDPRN PRN PO 03/11/25 22:15 Ascorbic Acid 500 mg BID PO 03/12/25 10:00 03/13/25 23:30 500 MG Acetaminophen 650 mg Q6HP PRN PO 03/11/25 22:15 03/12/25 09:30 650 MG Nitroglycerin 0.4 mg Q5MINP PRN SL 03/11/25 23:15 Montelukast Sodium 10 mg HS PO 03/12/25 22:00 03/13/25 23:30 10 MG Remdesivir 0 ml @ 0 mls/hr PER PHARMACY IV 03/13/25 17:45 03/15/25 17:46 Remdesivir 100 mg/ Sodium Chloride 250 ml @ 250 mls/hr DAILY@1500 IV 03/14/25 15:00 03/15/25 15:59 Laboratory Results Laboratory Tests 03/14/25 06:06 Chemistry Test 03/14/25 06:06 Albumin 4.2 g/dL (3.2-4.8) Calcium Level 9.1 mg/dL (8.7-10.4) Total Protein 6.4 g/dL (5.7-8.2) LFT Test 03/14/25 06:06 Alanine Aminotransferase (ALT) 12 U/L (7-40) Alkaline Phosphatase 54 U/L (46-116) Aspartate Amino Transferase (AST) 10 U/L (13-40) L Total Bilirubin 0.3 mg/dL (0.2-1.0) Urinalysis Test 03/11/25 18:20 03/12/25 13:10 Urine WBC Clumps Present /hpf (None Seen) Urine Hyaline Casts Few /lpf (0 - 2) Urine Color Colorless (Yellow) Urine Clarity Clear (Clear) Urine pH 7.0 (5.0-9.0) Urine Specific [place] 1.004 (1.001-1.035) Urine Protein Negative (Negative) Urine Ketones Negative (Negative) Urine Blood Negative /uL (Negative) Urine Nitrite Negative (Negative) Urine Bilirubin Negative (Negative) Urine Urobilinogen Normal mg/dL (Negative) Urine Leukocyte Esterase 3+ /uL (Negative) Urine RBC 4 /hpf (0 - 4) Urine Microscopic WBC 76 /HPF (0-5) H Urine Squamous Epithelial Cells Few /hpf (<5) Urine Bacteria Few /hpf (None Seen) H Urine Glucose Normal mg/dL (Normal) Microbiology Microbiology Date/Time Source Procedure Growth Status 03/11/25 18:20 Voided Urine Urine Culture - Final Complete 03/11/25 17:11 Blood Blood Culture - Preliminary NO GROWTH AFTER 48 HOURS OF INCUBATION. Resulted Labs and/or images reviewed: Labs reviewed by me, Image(s) reviewed by me Assessment/Plan Assessment/Plan 03/13: Given hypoxemia today I will start her on IV remdesivir treatment for three days. Continue current steroids breathing treatments. We will have social Service to arrange for home med nebulizer. Otherwise further clinical management per clinical course. Discussed with the nurse and patient. 03/14: Patient is getting treatment for COVID pneumonia and bacterial pneumonia. Patient is on remdesivir and Decadron zinc. IV ceftriaxone. I will add IV azithromycin ... Patient is hypertensive takes Lopressor and lisinopril, no AFib history, we will hold lisinopril in case of is cough, instead we will use nifedipine XL 30. She has history GERD and current symptoms, we will start p.o. Protonix. Otherwise continue management as outlined prior. Diagnosis: Acute on chronic respiratory failure COVID-19 pneumonia Community-acquired pneumonia , Gram-negative Gram-positive possible Acute Asthma exacerbation Plan: Remdesivir Decadron Same IV ceftriaxone IV azithromycin Continue home meds Prn pain control PRN antitussive Nifedipine 30 XL P.o. Protonix Okay to continuing diet Tele Full code Plan discussed with: Patient Date of Service: Mar 14, 2025 Billing Provider: JEY ROBIN MD Common Visit Codes: [id number] INP/OBS CARE(HIGH) JEY ROBIN MD Mar 14, 2025 12:13
[2025-03-14] MEDS: REMDESIVIR 100mg in NS 230mL (3 DAY REGIMEN) IV SCH (15:00)
[2025-03-14] MEDS: AZITHROMYCIN 500MG/ 250ML 250 ML IV SCH (17:22)
[2025-03-14] MEDS: PANTOPRAZOLE 40 MG TAB PO SCH (17:23)
[2025-03-14] MEDS: LORazepam 0.5 MG TAB PO PRN (22:45)
[2025-03-15] VITALS (14 sets, daily range): BP systolic 90–131; BP diastolic 58–94; PULSE 66–95; RESP 16–19; TEMP 98.3–99.1; O2SAT 96–100
[2025-03-15] MEDS: MELATONIN 5 MG TAB PO ONE (00:08)
[2025-03-15 07:12] LABS: Hemoglobin 10.6 g/dL (12.2-16.2)
[2025-03-15 07:16] LABS: Hematocrit 32.8 % (36.0-46.0); Mean Corpuscular Hemoglobin 24.3 pg (28.0-32.0); Mean Corpuscular Volume 75.5 fL (80.0-100.0); Nucleated Red Blood Cells % 0.1 %
[2025-03-15 07:24] LABS: Chloride 104 mmol/L (98-107); Potassium 3.7 mmol/L (3.5-5.1); Sodium 141 mmol/L (136-145)
[2025-03-15 07:25] LABS: Anion Gap 9 (5-15); Carbon Dioxide 28 mmol/L (20-31)
[2025-03-15 07:26] LABS: Calcium 8.9 mg/dL (8.7-10.4)
[2025-03-15 07:30] LABS: BUN/Creatinine Ratio 30.6 (10.0-20.0); Blood Urea Nitrogen 19 mg/dL (9-23)
[2025-03-15 07:31] LABS: Glucose 107 mg/dL (74-106)
[2025-03-15] MEDS: ESTRADIOL 1 MG TAB PO SCH (10:17)
[2025-03-15] MEDS: DOCUSATE SOD 100 MG CAP PO PRN (11:59)
--- NOTE | 2025-03-15 12:16 | DVHPN2 ---
Subjective Patient is seen today, doing well . continues to cough Reviewed: Care Plan Changes from previous H/P or p: No Changes General: Per HPI Eyes: No Pain, No Vision change, No Conjunctivae inflammation, No Eyelid inflammation, No Other, No Redness ENT: No Ear pain, No Ear discharge, No Nose pain, No Nose discharge, No Nose congestion, No Mouth pain, No Mouth swelling, No Throat pain, No Throat swelling, No Other Cardiovascular: No Chest Pain, No Palpitations, No Orthopnea, No Paroxysmal Noc. Dyspnea, No Edema, No Lt Headedness, No Other Respiratory: Cough; No Dry; Shortness of breath, SOB with excertion; No Wheezing, No Hemoptysis, No Pleuritic Pain, No Sputum; Other (SOB at rest) Gastrointestinal: No Nausea, No Vomiting, No Abdominal Pain, No Diarrhea, No Constipation, No Melena, No Hematochezia, No Other Genitourinary: No Dysuria, No Frequency, No Incontinence, No Hematuria, No Retention, No Other Musculoskeletal: No other, No neck pain, No shoulder pain, No arm pain, No back pain, No hand pain, No leg pain, No foot pain Skin: No Rash, No Lesions, No Jaundice, No Bruising, No Other Objective Vitals Vital Signs Date Time Temp Pulse Resp B/P (MAP) Pulse Ox O2 Delivery O2 Flow Rate FiO2 03/15/25 10:18 120/81 03/15/25 09:00 99.1 66 18 98 99.1 03/15/25 06:40 Room Air* 0 21 Intake/Output Intake and Output 03/15/25 07:00 Intake Total 1200 ml Balance 1200 ml Intake Oral 950 ml IV Total 250 ml # Voids 9 Exam GEN: Healthy appearing, well-developed, NAD. HEENT: NC/AT; MMM. CV: RRR, no m/r/g. LUNGS: CTAB, no w/r/c. ABD: Soft, NT/ND, NBS, no masses or organomegaly. EXT: skin Warm, well perfused. no rashes. No clubbing, cyanosis, or edema. NEURO: Ambulating with no limitations. No focal deficits. Medications Current Medications Medications Dose Ordered Sig/[place] Route Start Time Stop Time Status Last Admin Dose Admin Ceftriaxone Sodium 50 ml @ 100 mls/hr DAILY@09 IV 03/12/25 09:00 03/15/25 10:17 100 MLS/HR Zinc Sulfate 220 mg DAILY PO 03/12/25 10:00 03/15/25 10:17 220 MG Albuterol 90 mcg TIDPRN PRN IN 03/11/25 22:15 03/15/25 06:51 90 MCG Budesonide 360 mcg BID IN 03/12/25 10:00 03/15/25 06:38 360 MCG Dexamethasone Sodium Phosphate 6 mg DAILY IV 03/12/25 10:00 03/22/25 09:59 03/15/25 10:18 6 MG Enoxaparin Sodium 40 mg DAILY SC 03/12/25 10:00 03/15/25 10:18 40 MG Sodium Chloride 10 ml Q8HR IV 03/12/25 06:00 03/15/25 07:06 10 ML Ondansetron HCl 4 mg Q4HP PRN IV 03/11/25 22:15 Docusate Sodium 100 mg BIDPRN PRN PO 03/11/25 22:15 03/15/25 11:59 100 MG Ascorbic Acid 500 mg BID PO 03/12/25 10:00 03/15/25 11:59 500 MG Acetaminophen 650 mg Q6HP PRN PO 03/11/25 22:15 03/15/25 07:09 650 MG Nitroglycerin 0.4 mg Q5MINP PRN SL 03/11/25 23:15 Montelukast Sodium 10 mg HS PO 03/12/25 22:00 03/14/25 21:31 10 MG Remdesivir 0 ml @ 0 mls/hr PER PHARMACY IV 03/13/25 17:45 03/15/25 17:46 Remdesivir 100 mg/ Sodium Chloride 250 ml @ 250 mls/hr DAILY@1500 IV 03/14/25 15:00 03/15/25 15:59 Azithromycin 250 ml @ 125 mls/hr DAILY IV 03/14/25 12:15 03/15/25 11:59 125 MLS/HR Pantoprazole Sodium 40 mg DAILY@0600 PO 03/14/25 15:15 03/15/25 07:06 40 MG Nifedipine 30 mg DAILY PO 03/14/25 15:15 03/15/25 10:18 30 MG Estradiol 1 mg DAILY PO 03/15/25 10:00 03/15/25 10:17 1 MG Lorazepam 1 mg Q8HP PRN PO 03/14/25 22:30 03/14/25 22:45 1 MG Laboratory Results Laboratory Tests 03/15/25 06:52 Chemistry Test 03/15/25 06:52 Calcium Level 8.9 mg/dL (8.7-10.4) Urinalysis Test 03/11/25 18:20 03/12/25 13:10 Urine WBC Clumps Present /hpf (None Seen) Urine Hyaline Casts Few /lpf (0 - 2) Urine Color Colorless (Yellow) Urine Clarity Clear (Clear) Urine pH 7.0 (5.0-9.0) Urine Specific [place] 1.004 (1.001-1.035) Urine Protein Negative (Negative) Urine Ketones Negative (Negative) Urine Blood Negative /uL (Negative) Urine Nitrite Negative (Negative) Urine Bilirubin Negative (Negative) Urine Urobilinogen Normal mg/dL (Negative) Urine Leukocyte Esterase 3+ /uL (Negative) Urine RBC 4 /hpf (0 - 4) Urine Microscopic WBC 76 /HPF (0-5) H Urine Squamous Epithelial Cells Few /hpf (<5) Urine Bacteria Few /hpf (None Seen) H Urine Glucose Normal mg/dL (Normal) Microbiology Microbiology Date/Time Source Procedure Growth Status 03/11/25 18:20 Voided Urine Urine Culture - Final Complete 03/11/25 17:11 Blood Blood Culture - Preliminary NO GROWTH AFTER 72 HOURS OF INCUBATION. Resulted Labs and/or images reviewed: Labs reviewed by me, Image(s) reviewed by me Assessment/Plan Assessment/Plan HPI:59-year-old female with past medical history of asthma, anxiety, GERD, hyperlipidemia, and hypertension who presented to [facility] ED with complaint of shortness of breaths. Patient reports she has been experiencing shortness of breaths associated with cough with greenish phlegm, nausea, tested positive for COVID-19 on March 07, 2025 with intermittent fevers, but now afebrile. 03/13: Given hypoxemia today I will start her on IV remdesivir treatment for three days. Continue current steroids breathing treatments. We will have social Service to arrange for home med nebulizer. Otherwise further clinical management per clinical course. Discussed with the nurse and patient. 03/14: Patient is getting treatment for COVID pneumonia and bacterial pneumonia. Patient is on remdesivir and Decadron zinc. IV ceftriaxone. I will add IV azithromycin ... Patient is hypertensive takes Lopressor and lisinopril, no AFib history, we will hold lisinopril in case of is cough, instead we will use nifedipine XL 30. She has history GERD and current symptoms, we will start p.o. Protonix. Otherwise continue management as outlined prior. 03/15: Patient denying remdesivir. Still on oxygen, declining Paxlovid. We will be unable to discharge diffuse unable to wean off oxygen. If oxygen is able to be weaned off we can discharge with home meds and refusal therapy. - trying to wean off oxygen continuing IV antibiotics despite patient refusing remdesivir/Paxlovid, if patient continues to improve we will likely DC tomorrow. Diagnosis: Acute on chronic respiratory failure COVID-19 pneumonia Community-acquired pneumonia , Gram-negative Gram-positive possible Acute Asthma exacerbation Plan: Remdesivir Decadron Same IV ceftriaxone IV azithromycin Continue home meds Prn pain control PRN antitussive Nifedipine 30 XL P.o. Protonix Okay to continuing diet Tele Full code Plan discussed with: Patient My Orders Orders - JEY ROBIN MD Procedure Category Date Status Time Pantoprazole Tablet PHA 03/14/25 In Process (Protonix Tablet) 15:15 Nifedipine Er PHA 03/14/25 In Process (Procardia Xl 15:15 Estradiol Tablet PHA 03/15/25 In Process (Estrace Tablet) 10:00 Date of Service: Mar 15, 2025 Billing Provider: JEY ROBIN MD Common Visit Codes: [id number] INP/OBS CARE(HIGH) JEY ROBIN MD Mar 15, 2025 12:16
[2025-03-16] VITALS (9 sets, daily range): BP systolic 112–136; BP diastolic 71–88; PULSE 61–80; RESP 14–20; TEMP 97.7–98.6; O2SAT 94–100
[2025-03-16] MEDS: MELATONIN 5 MG TAB PO ONE (00:33)
[2025-03-16 05:38] LABS: Hematocrit 31.7 % (36.0-46.0); Hemoglobin 10.4 g/dL (12.2-16.2); Mean Corpuscular Hemoglobin 24.7 pg (28.0-32.0); Mean Corpuscular Volume 75.5 fL (80.0-100.0)
[2025-03-16 06:20] LABS: Nucleated Red Blood Cells % 1.0 %; Total Cells Counted 100.0 (100)
[2025-03-16 06:21] LABS: Anisocytosis Slight; Ovalocytes FEW
[2025-03-16] MEDS ORDERED: DOXY100C79 PO (16:34)
[2025-03-16] MEDS ORDERED: AUG875T PO (16:34)
--- NOTE | 2025-03-16 16:38 | DVHDS2 ---
Discharge Summary Date of Admission Mar 11, 2025 at 23:06 Date of Discharge: Mar 16, 2025 Labs/Diagnostic Data: Laboratory Results Test 03/16/25 05:07 03/15/25 22:27 03/15/25 06:52 03/14/25 06:06 White Blood Count 15.8 10^3/uL (4.4-10.8) Red Blood Count 4.19 10^6/uL (4.0-5.20) Hemoglobin 10.4 g/dL (12.2-16.2) Hematocrit 31.7 % (36.0-46.0) Mean Corpuscular Volume 75.5 fL (80.0-100.0) Mean Corpuscular Hemoglobin 24.7 pg (28.0-32.0) Mean Corpuscular Hemoglobin Concent 32.7 g/dL (32.0-36.0) Red Cell Distribution Width 20.7 % (11.8-14.3) Platelet Count 511 10^3/uL (140-450) Mean Platelet Volume 7.7 fL (6.9-10.8) Neutrophils (%) (Auto) % (37.0-80.0) Lymphocytes (%) (Auto) % (10.0-50.0) Monocytes (%) (Auto) % (0.0-12.0) Basophils (%) (Auto) % (0.0-2.0) Neutrophils # (Auto) 10 ^3/uL (1.6-8.6) Lymphocytes # (Auto) 10 ^3/uL (0.4-5.4) Monocytes # (Auto) 10 ^3/uL (0-1.3) Differential Total Cells Counted 100.0 (100) Neutrophils % (Manual) 48 (37.0-80.0) Band Neutrophils % (Manual) 1 Lymphocytes % (Manual) 37 (10.0-50.0) Monocytes % (Manual) 9 (0-12) Eosinophils % (Manual) 0 (0-7) Basophils % (Manual) 0 (0.0-2.0) Metamyelocytes % (manual) 2 Myelocytes % (Manual) 2 Promyelocytes % (Manual) 1 Blast Cells % (Manual) 0 Nucleated Red Blood Cells 1.0 % Reactive Lymphocytes 0 Platelet Estimate Increased Hypochromasia (manual) Slight Anisocytosis (manual) Slight Microcytosis Slight Ovalocytes Few C-Reactive Protein High Sensitivity 0.14 mg/dL (<1.0) Eosinophils (%) (Auto) 0.0 % (0.0-7.0) Eosinophils # (Auto) 0 10 ^3/uL (0-0.8) Basophils # (Auto) 0 10 ^3/uL (0-0.2) Sodium Level 141 mmol/L (136-145) Potassium Level 3.7 mmol/L (3.5-5.1) Chloride Level 104 mmol/L (98-107) Carbon Dioxide Level 28 mmol/L (20-31) Anion Gap 9 (5-15) Blood Urea Nitrogen 19 mg/dL (9-23) Creatinine 0.62 mg/dL (0.550-1.02) Glomerular Filtration Rate Calc 101 mL/min (>90) BUN/Creatinine Ratio 30.6 (10.0-20.0) Serum Glucose 107 mg/dL (74-106) Lactic Acid Level 1.9 mmol/L (0.4-2.0) Calcium Level 8.9 mg/dL (8.7-10.4) Total Bilirubin 0.3 mg/dL (0.2-1.0) Aspartate Amino Transferase (AST) 10 U/L (13-40) Alanine Aminotransferase (ALT) 12 U/L (7-40) Alkaline Phosphatase 54 U/L (46-116) Total Protein 6.4 g/dL (5.7-8.2) Albumin 4.2 g/dL (3.2-4.8) Test 03/12/25 13:10 03/12/25 08:59 03/11/25 22:20 03/11/25 20:49 Urine Color Colorless (Yellow) Urine Clarity Clear (Clear) Urine pH 7.0 (5.0-9.0) Urine Specific [place] 1.004 (1.001-1.035) Urine Protein Negative (Negative) Urine Ketones Negative (Negative) Urine Blood Negative /uL (Negative) Urine Nitrite Negative (Negative) Urine Bilirubin Negative (Negative) Urine Urobilinogen Normal mg/dL (Negative) Urine Leukocyte Esterase 3+ /uL (Negative) Urine RBC 4 /hpf (0 - 4) Urine Microscopic WBC 76 /HPF (0-5) Urine Squamous Epithelial Cells Few /hpf (<5) Urine Bacteria Few /hpf (None Seen) Urine Glucose Normal mg/dL (Normal) [place] Cells D-Dimer, Quantitative 0.26 mg/L FEU (0.0-0.49) Lactate Dehydrogenase 157 U/L (120-246) Troponin I High Sensitivity < 3 ng/L (</=34) Test 03/11/25 18:20 03/11/25 18:00 03/11/25 17:11 Urine WBC Clumps Present /hpf (None Seen) Urine Hyaline Casts Few /lpf (0 - 2) Influenza Type A Antigen Negative (Negative) Influenza Type B Antigen Negative (Negative) SARS-CoV-2 Antigen (Rapid) Positive (NEGATIVE) B-Type Natriuretic Peptide 48.14 pg/mL (0-100) Other Laboratory Tests 03/16/25 05:07 03/15/25 06:52 Brief Hx & Hospital Course: HPI:59-year-old female with past medical history of asthma, anxiety, GERD, hyperlipidemia, and hypertension who presented to [facility] ED with complaint of shortness of breaths. Patient reports she has been experiencing shortness of breaths associated with cough with greenish phlegm, nausea, tested positive for COVID-19 on March 07, 2025 with intermittent fevers, but now afebrile. 03/13: Given hypoxemia today I will start her on IV remdesivir treatment for three days. Continue current steroids breathing treatments. We will have social Service to arrange for home med nebulizer. Otherwise further clinical management per clinical course. Discussed with the nurse and patient. 03/14: Patient is getting treatment for COVID pneumonia and bacterial pneumonia. Patient is on remdesivir and Decadron zinc. IV ceftriaxone. I will add IV azithromycin ... Patient is hypertensive takes Lopressor and lisinopril, no AFib history, we will hold lisinopril in case of is cough, instead we will use nifedipine XL 30. She has history GERD and current symptoms, we will start p.o. Protonix. Otherwise continue management as outlined prior. 03/15: Patient denying remdesivir. Still on oxygen, declining Paxlovid. We will be unable to discharge diffuse unable to wean off oxygen. If oxygen is able to be weaned off we can discharge with home meds and refusal therapy. - trying to wean off oxygen continuing IV antibiotics despite patient refusing remdesivir/Paxlovid, if patient continues to improve we will likely DC tomorrow. 03/16: Patient continues to decline remdesivir treatment. . RT and RN able to wean patient down to room air, no oxygen requirement on room air or with ambulation. Patient feeling improved, stable for discharge as per plan below. Diagnosis: Acute hypoxemic respiratory failure, resolved COVID-19 pneumonia Community-acquired pneumonia , Gram-negative Gram-positive possible Acute exacerbation of chronic Asthma anxiety, GERD, hyperlipidemia, hypertension Discharge plan: Take Augmentin 875 mg twice daily for 5 days Take doxycycline 100 mg twice daily for 5 days Follow up with PCP to review discharge Condition at Discharge: Fair Final Diagnosis/Problems List Acute hypoxemic respiratory failure, resolved COVID-19 pneumonia Community-acquired pneumonia , Gram-negative Gram-positive possible Acute exacerbation of chronic Asthma anxiety, GERD, hyperlipidemia, hypertension Discharge Disposition: Home Discharge Instruct/Medications Diet: Cardiac 2g Na,low cholest Activity: No Restrictions, As Tolerated Follow Up/Referral: Below Medications: Below Scheduled Alprazolam (Xanax), 1 TAB PO PRN, (Reported) Amoxicillin & Pot Clavulanate (Augmentin Tablet), 875 MG PO BID Doxycycline (Monohydrate) (Doxycycline), 100 MG PO BID Estradiol (Estradiol), 1 MG PO DAILY, (Reported) Metoprolol Tartrate (Lopressor Tablet), 50 MG PO BID, (Reported) [Ambien], 5 MG PO HS, (Reported) Miscellaneous Medications Nitroglycerin (Nitroglycerin Lingual), 400 MCG TL, (Reported) Discharge Statement: "Patient was advised to return to the ER or call 911 if any headaches, dizziness, shortness of breath, chest pain, abdominal pain, bleeding, fevers, or worsening of medical condition. Patient was counseled about treatment plan, medications, possible side effects, patientverbalized understanding. All questions were answered to the best of my ability. This discharge took greater then 30 minutes in planning, reviewing documentation, counseling the patient, and discussing with other team members." Date of Service: Mar 16, 2025 Billing Provider: JEY ROBIN MD Common Visit Codes: [id number] DISCH DAY >30min JEY ROBIN MD Mar 16, 2025 16:38
== END 2025-03-16 18:50 | disposition home or self-care (01) | DRG 177 ==
LOC: EDBD 16:12 → ER 16:12 → OVERFLOW 23:06 → TELE-EAST 03-14 12:59
PROVIDERS: ADMIT Student in an Organized Health Care Education/Training Program; ATTEND Student in an Organized Health Care Education/Training Program
PROC: XW033E5 Introduction of Remdesivir Anti-infective into Peripheral Vein, Percutaneous Approach, New Technology Group 5 (ICD-10-PCS; principal; 2025-03-13)
DX: U07.1 COVID-19 (principal); J12.82 Pneumonia due to coronavirus disease 2019; J96.21 Acute and chronic respiratory failure with hypoxia; J15.9 Unspecified bacterial pneumonia; N39.0 Urinary tract infection, site not specified; J45.901 Unspecified asthma with (acute) exacerbation; J15.69 Pneumonia due to other Gram-negative bacteria; I10 Essential (primary) hypertension; E87.6 Hypokalemia; K21.9 Gastro-esophageal reflux disease without esophagitis; F41.9 Anxiety disorder, unspecified; E78.5 Hyperlipidemia, unspecified; Z90.49 Acquired absence of other specified parts of digestive tract; Z88.5 Allergy status to narcotic agent; Z90.710 Acquired absence of both cervix and uterus
CPT/HCPCS: 36415; 71045; 71046; 80048; 80053; 81001; 83605; 83615; 83880; 84484; 85007; 85025; 85027; 85379; 86141; 87040; 87086; 87426; 87804; 94640; 96365; 96375; 97110; 97116; 97163; 99291; G0378; J0692; J1100; J2405

== ENCOUNTER 2025-03-17 18:46 | Emergency (ER) | payer OTHER, MEDICAID ==
[~2025-03-17] VITALS: Ht 157.5 cm; Wt 61.3 kg
[2025-03-17 18:46] VITALS: BP 133/97; PULSE 86; RESP 18; TEMP 98.5; O2SAT 100
[~2025-03-17 18:46] MED LIST changes: +AUG875T PO; +DOXY100C79 PO
--- NOTE | 2025-03-18 23:55 | ECG ---
[facility] Test Date: 2025-03-17 Test Time: 18:46:25 Pat Name: ADRIANNE MCFADDEN Department: Room: Gender: F [employer]ester [employer]: JAJA : [id number] Requested By: GUANAKO JAUREGUI Order Number: [id number] Reading MD: Bishop Ignacio Measurements Intervals [place] Rate: 93 P: -32 UT: 157 QRS: -33 QRSD: 80 T: 23 QT: 382 QTc: 476 Interpretive Statements Sinus rhythm Left ventricular hypertrophy Baseline wander in lead(s) II,III,aVF,V6 Electronically Signed On 03-19-2025 16:23:11 PDT by Bishop Ignacio Please click the below link to view image of tracing.
== END 2025-03-17 19:05 | disposition left against medical advice (07) ==
LOC: ER 18:46 → EDBD 18:46 → ER 19:05
DX: R07.9 Chest pain, unspecified (principal); R07.89 Other chest pain; R06.02 Shortness of breath; R05.9 Cough, unspecified; Z53.21 Procedure and treatment not carried out due to patient leaving prior to being seen by health care provider
CPT/HCPCS: 93005